=== PATIENT | female | born 1950 | race Caucasian/White ===

== ENCOUNTER 2016-11-29 08:55 | Outpatient (CLI) | payer OTHER ==
[~2016-11-29 08:55] MED LIST: AMARYL1 MG PO; ASPIRIN EC LOW81 MG PO; CARAFATE EQUIVAL1 GM PO; CARISOPRODOL250 MG PO; CARISOPRODOL350 MG PO; CENTRUM SILVER ULTR1 PO; CEPHALEXIN500 MG PO; FISH OIL1000 M1 PO; GLUCOPHAGE PO; LASIX40 MG PO; LIDODERM5 % TOP; LISINOPRIL2.5 MG PO; METAN1 PO; MILK THISTLE200 MG PO; MOBIC15 MG PO; NEURONTIN100 MG PO; NEURONTIN800 MG PO; PEPCID40 MG PO; PHENERGAN EQUIV25 MG PO; PRILOSEC40 MG PO; TOPROL XL25 MG PO; ULTRAM EQIVALEN50 MG PO; VITAMIN D-31000 UNIT PO; VITAMIN E200 UNIT PO; XANAX0.25 MG PO; ZESTRIL2.5 MG PO; [UNRECOGNIZED DRUG - OTHER] PO; [UNRECOGNIZED DRUG - OTHER] PO
--- NOTE | 2016-11-29 11:26 | DIAGNOSTIC IMAGING REPORT ---
PROCEDURE: MG BILATERAL SCREENING W/CAD INDICATION: Family history breast carcinoma (aunt). TECHNIQUE: Bilateral CC and MLO digital views. COMPARISON: Compared to 05/09/2015, 10/30/2013, and 08/15/2009. FINDINGS: Computer-aided detection applied. Mildly to moderately dense. No change. IMPRESSION: 1. Negative mammogram. RESULT CODE: 1- Negative. A. A negative report should not delay biopsy if a dominant or clinically suspicious mass is present. 10-15% of cancers are not identified by x-ray. B. A negative report may reinforce clinical impression. C. Adenosis and dense breasts may obscure an underlying neoplasm. D. False positive reports average 6-10%. E.. A yearly screening mammogram is recommended. A reminder letter will be scheduled.
== END 2016-11-29 23:00 ==
LOC: MAM SRH 08:55
DX: Z12.31 Encounter for screening mammogram for malignant neoplasm of breast (principal); Z80.3 Family history of malignant neoplasm of breast